=== PATIENT | male | born 1975 | race Caucasian/White ===

== ENCOUNTER 2024-06-27 18:36 | Emergency (ER) | payer MEDICARE, SELFPAY ==
[2024-06-27 18:42] VITALS: BP 163/108
[2024-06-27 21:53] VITALS: BP 152/78
--- NOTE | 2024-06-27 23:04 | ED.GENMED ---
History of Present Illness
General
Chief Complaint: Skin Problem
Source: patient and previous hospital records (ED visit May 2021 for somewhat similar complaint of skin problem. Prior hospitalization 2022-intentional TCA overdose)
Exam Limitations: none
Time Seen by Provider: 06/27/24 22:36
Nursing documentation reviewed up to this point in time: agreed with
History of Present Illness
History of Present Illness:
This is a 48-year-old gentleman who resides with his grandmother. He has reported history of schizophrenia, prior history of polysubstance drug use, history of chronic back pain who presents with complaints of 6-month history of itchy skin
primarily at nighttime with concern for worm infestation. He is convinced that he has worms crawling out of his hands and feet and possibly out of his lip.
He believes worm infestation is related to consuming chicken that he purchased at a local grocery store. He denies consuming raw meat, no close contacts with similar symptoms.
Prior records reveal ED visit May 2021 with complaints of itchy skin, again primarily at nighttime and at that time patient concern for scabies as he has previously been treated for scabies. During that ED visit he was prescribed permethrin cream.
He denies fever nor chills, denies pain, no weakness or numbness.
Denies drug nor alcohol use.
He takes no medicines on a daily basis.
He shows me pictures on his phone of raw chicken with concern for quite stringy fiber which he admits is attached to the chicken and required moderate distracting force to remove from the chicken. These fibers appear to be part of the chicken skin
and not consistent with worms.
Past History
Past History
ED Past Medical History: Psychiatric, Other (Migraine headaches, chronic \\ Chronic back pain) and Other (Trauma to right ear canal )
ED Past Surgical History: Orthopedic (Partial amputation right index digit )
Social History
Tobacco: Smoker
Alcohol: Occasional
Drug: Former user
Personal: Single
Living: with family
Employment: Disabled
Family History
Family History: CAD
Phy Exam
Physical Exam
Physical Exam:
GENERAL: 48-year-old mildly disheveled gentleman appears older than stated age. He is sleeping upon my initially entering exam room. Awakens easily. Once awake he is bright and alert, oriented x 3, in no distress.
EYE: anicteric
NECK: Supple, nontender, no meningismus, no significant adenopathy.
ENT: oral mucosa is moist. No rhinorrhea.
CARDIAC: Regular rate and rhythm. no murmur.
LUNGS: Clear breath sounds bilaterally, no acute respiratory distress, no wheezes/rales/rhonchi
ABDOMEN: Soft, nondistended, without focal tenderness, normoactive BS.
NEUROLOGICAL: Alert and oriented x3, no focal neuro deficits. Gait is steady.
SKIN: Warm and dry, normal color, there are few tiny superficial abrasions scattered bilateral ankles. There is 1 minute very superficial skin flap right anterior proximal palm. Superficial dry patch right anterior lower leg.
MUSCULOSKELETAL: No C/C/E. peripheral pulses are full and equal b/l. No palpable tenderness.
PSYCH: Mildly anxious. Delusional concerns for worms extruding from his hands and feet. No such evidence of infestation visible.
Course
Orders/Labs/Results
Orders:
Orders
06/27/24 23:00
Ivermectin (Non-Form) [Stromectol] 15 mg PO ONCE ONE
Vital Signs
Initial and Last Documented VS:
Initial Vital Signs
Temp Pulse Resp BP Pulse Ox
98.1 F 104 18 163/108 99
06/27/24 18:42 06/27/24 18:42 06/27/24 18:42 06/27/24 18:42 06/27/24 18:42
Last Documented Vital Signs
Temp Pulse Resp BP Pulse Ox
98.1 F 95 22 143/95 98
06/27/24 18:42 06/27/24 22:51 06/27/24 21:53 06/27/24 23:25 06/27/24 22:51
MDM/Problems Addressed
Differential Diagnosis Includes:
Patient presents with 6-month history of nocturnal pruritus.
Concern for worms embedded under his skin which he claims he is extracting from his hands and feet.
He is noted to have few scattered superficial abrasions, few excoriations but no evidence of infestation.
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
No indication for laboratory studies.
Other than what appears to be delusional parasitosis patient is bright and alert, oriented x 3.
No evidence of acute mental health crisis.
Encouraged prompt follow-up with PCP and patient has been referred to our family practice residency clinic.
Chronic conditions affecting care: Psychiatric illness
Acute Exacerbation and/or Progression of Chronic Illness: Psychiatric illness
*Pulse Oximetry
Patient hypoxic: no
*Critical Care Note
Total Time (30-74mins, 75-104mins- exclusive of procedures): Not Applicable
ED Attending Note
-
Portions of this chart may have been created with voice recognition software.� Occasional wrong word or��sound alike� substitutions may have occurred due to the inherent limitations of voice recognition software.
Discharge Plan
Departure
Patient Disposition: Home (Routine Discharge)
Date of Disposition: 06/27/24
Time of Disposition: 23:05
Patient with high blood pressure during this ER visit?: Yes
Discharge Problem:
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
Instructions: Scabies, Itchy skin, BLOOD PRESSURE
Prescriptions:
No Action
amitriptyline 75 MG tablet
75 mg PO HS
oxycodone 10 MG tablet
30 mg PO PRN PRN (Reason: back pain)
Excedrin
2 tab PO PRN PRN (Reason: migraines)
Methadone
30 mg PO BID
permethrin 1 APPLIC cream
0 applic topical NOW Qty: 1 0RF
Rx Instructions:
apply from head to toe, avoid eyes and mouth, leave on for 8-14 hours then wash off
hydroxyzine HCl 10 MG tablet
10 mg PO TID PRN (Reason: itching) 4 Days Qty: 12 0RF
Referrals:
[facility] [Provider Group] - Call in 1-3 days for appt
[facility] [Family Provider] - Call in 1-3 days for appt
Interventions
Interventions:
*Risk Screen - Suicide Last Done: 06/27/24 18:42
*General Assessment Last Done: 06/27/24 18:42
*Neglect/Abuse Screening Last Done: 06/27/24 18:42
*ED- Fall Risk Assessment Last Done: 06/27/24 23:56
*ED COVID-19 Vaccine History Last Done: 06/27/24 18:42
*Nursing Disposition Last Done: 06/27/24 23:56
ED-Skin Assessment Last Done: 06/27/24 23:03
Discharge Date and Time
Discharge Date/Time: 06/28/24 00:05
Print Language: TRISTANIAN
[2024-06-27 23:25] VITALS: BP 143/95
[2024-06-27 23:38] VITALS: BMI 20.6
[2024-06-27] MEDS: STROMECTOL 15 MG PO (23:53)
== END 2024-06-28 00:05 | disposition home or self-care (01) ==
LOC: EMR 18:36
PROVIDERS: EMERGENCY PHYSICIAN Emergency Medicine
DX: G25.81 Restless legs syndrome (principal); F22 Delusional disorders; S90.512A Abrasion, left ankle, initial encounter; S90.511A Abrasion, right ankle, initial encounter; L29.9 Pruritus, unspecified; X58.XXXA Exposure to other specified factors, initial encounter; R03.0 Elevated blood-pressure reading, without diagnosis of hypertension; F20.9 Schizophrenia, unspecified; G89.29 Other chronic pain; M54.9 Dorsalgia, unspecified; F19.91 Other psychoactive substance use, unspecified, in remission; G43.909 Migraine, unspecified, not intractable, without status migrainosus; F17.200 Nicotine dependence, unspecified, uncomplicated
CPT/HCPCS: 99283